=== PATIENT | female | born 1970 | race Two or more races ===

== ENCOUNTER → 2019-06-03 | Outpatient (CLI) | payer OTHER ==
[~2019-06-03] MED LIST: PROZAC10 MG
== END | disposition home or self-care (01) ==
LOC: LAB 08:21
DX: D64.89 Other specified anemias (principal)

== ENCOUNTER 2019-09-25 08:19 | Outpatient (CLI) | payer OTHER | END 2019-09-25 08:30 | disposition home or self-care (01) | LOC: LAB 08:19 | DX: D50.8 Other iron deficiency anemias (principal); I10 Essential (primary) hypertension; D51.0 Vitamin B12 deficiency anemia due to intrinsic factor deficiency; D51.1 Vitamin B12 deficiency anemia due to selective vitamin B12 malabsorption with proteinuria; D68.0 Von Willebrand disease; D51.3 Other dietary vitamin B12 deficiency anemia; E89.0 Postprocedural hypothyroidism; R97.0 Elevated carcinoembryonic antigen [CEA]; D51.8 Other vitamin B12 deficiency anemias; D68.8 Other specified coagulation defects ==

== ENCOUNTER 2024-07-20 14:34 | Emergency (ER) | payer OTHER ==
[~2024-07-20] VITALS: Ht 165.1 cm; Wt 86.2 kg
[2024-07-20] MEDS ORDERED: DEPAKOTE ER500 MG PO (15:41)
[2024-07-20] MEDS ORDERED: SYNTHROID112 MCG PO (15:41)
[2024-07-20] MEDS ORDERED: TRAMADOL HCL 50 MG TABLET PO ONE (16:45)
[2024-07-20 18:02] LABS: INR 1.06; PARTIAL THROMBOPLASTIN TIME 31.1 SECONDS (22.0-34.0); PROTHROMBIN TIME 11.5 SECONDS (9.0-11.5)
== END 2024-07-20 20:21 | disposition home or self-care (01) ==
LOC: ER 14:36
PROVIDERS: General Practice
DX: M25.562 Pain in left knee (principal); Z88.0 Allergy status to penicillin

== ENCOUNTER → 2024-08-03 | Emergency (ER) | payer OTHER ==
[~2024-08-03] VITALS: Ht 165.1 cm; Wt 83.9 kg
[~2024-08-03] MED LIST changes: +DEPAKOTE ER500 MG PO; +DEXAMETHASONE SODIUM PHOSPHATE 4 MG/ML VIAL IM STA; +SYNTHROID112 MCG PO; +TRAMADOL HCL 50 MG TABLET PO STA
== END | disposition home or self-care (01) ==
LOC: ER 16:50
DX: M25.562 Pain in left knee (principal); Z88.0 Allergy status to penicillin